=== PATIENT | female | born 1995 | race Caucasian/White ===

== ENCOUNTER 2021-02-22 23:11 | Emergency (ER) | payer OTHER ==
[2021-02-23 00:07] LABS: RED BLOOD COUNT 4.7 M/UL (4.00-5.10); WHITE BLOOD COUNT 9.5 K/UL (4.5-11.0)
[2021-02-23 00:25] LABS: BUN/CREATININE RATIO 15 (0-10)
== END 2021-02-23 05:28 | disposition home or self-care (01) ==
LOC: ER1 23:11
PROVIDERS: Family Medicine
DX: O99.891 Other specified diseases and conditions complicating pregnancy (principal); R10.12 Left upper quadrant pain; O02.81 Inappropriate change in quantitative human chorionic gonadotropin (hCG) in early pregnancy; Z3A.01 Less than 8 weeks gestation of pregnancy
CPT/HCPCS: 76817; 80053; 81001; 83605; 83690; 84702; 85025; 86900; 86901; 99284

== ENCOUNTER 2021-02-25 10:20 | Emergency (ER) | payer OTHER ==
[2021-02-25 11:12] LABS: HEMOGLOBIN 13.6 gm/dl (12.3-15.3); RED BLOOD COUNT 4.54 M/UL (4.00-5.10); WHITE BLOOD COUNT 6.7 K/UL (4.5-11.0)
[2021-02-25 11:32] LABS: BUN/CREATININE RATIO 17 (0-10)
== END 2021-02-25 18:10 | disposition home or self-care (01) ==
LOC: ER1 10:20
PROVIDERS: Nurse Practitioner
DX: O20.0 Threatened abortion (principal); Z88.8 Allergy status to other drugs, medicaments and biological substances; Z3A.01 Less than 8 weeks gestation of pregnancy
CPT/HCPCS: 76817; 80053; 84702; 85025; 99284; J2791